=== PATIENT | male | born 1955 | race Caucasian/White ===

== ENCOUNTER 2019-04-11 23:50 | Observation (INO) ==
[~2019-04-11 23:50] MED LIST: SODIUM CHLORIDE 0.9% 1000ML 1,000 ML IV SCH; SODIUM CHLORIDE 0.9% 500 ML IV SCH
[2019-04-12 00:27] LABS: Hematocrit (blood only) 44.1 % (42-52); Hemoglobin 14.8 g/dL (14.0-18.0); Mean Corpuscular Hemoglobin 30.7 pg (25-34); Mean Corpuscular Hgb Conc 33.6 g/dL (32-36); Mean Corpuscular Volume 91.5 fL (80-100); Mean Platelet Volume 9.9 fL (7.4-10.4); Platelet Count 253 K/uL (130-400); RDW Coefficient of Variation 13.5 % (11.5-14.5); RDW Standard Deviation 44.8 fL (36.4-46.3); Red Blood Count 4.82 M/uL (4.7-6.1); White Blood Count 14.81 K/uL (4.8-10.8)
[2019-04-12 00:39] LABS: Partial Thromboplastin Time 26.6 Seconds (21.0-31.0)
[2019-04-12 00:52] LABS: Albumin Level 4.1 gm/dl (3.4-5.0); BUN Creatinine Ratio 21.1 (10-20); Creatinine Clr Calc Pharmacy 69.1 ml/min; Est GFR (African American) 71.1; Est GFR (Non-African American) 61.3; Potassium 3.7 mmol/L (3.5-5.1)
[2019-04-12 00:55] LABS: Albumin Globulin Ratio 1.3 (0.9-2); Bilirubin,Total 0.4 mg/dl (0.2-1); Globulin 3.2 gm/dl (2.5-4.0); Total Protein 7.3 gm/dl (6.4-8.2)
[2019-04-12] MEDS ORDERED: IOVERSOL 100ml IV PRN (01:11)
[2019-04-12 01:47] LABS: ALC (manual) 9.61 K/uL (1.2-3.4); ANC (manual) 4.81 K/uL (1.4-6.5); Lymphocytes # (manual) 2.78 K/uL (1.2-3.4); Lymphocytes % (manual) 18.8 %; Monocytes # (manual) 0.39 K/uL (0.11-0.59); Monocytes % (manual) 2.6 %; Neutrophils # (manual) 4.81 K/uL (1.4-6.5); Neutrophils % (manual) 32.5 %; Reactive Lymphocytes # (manual) 6.83 K/uL; Reactive Lymphocytes % (manual) 46.1 %
[2019-04-12] MEDS ORDERED: AMPICILLIN/SULBACTAM SOD 3,000 MG in 0.9 % SODIUM CHLORIDE 100 ML IV STA (02:32)
--- NOTE | 2019-04-12 03:01 | Emergency Department Note ---
Entered by America Lion acting as a scribe for Kenisha Mcgee MD History of Present Illness General Chief complaint: Rectal Bleed Stated complaint: BLEEDING FROM RECTUM Source: patient History of Present Illness Onset (ago): day(s) 2 Location: abdomen Pain Consistency: + other (persistent ) Maximum Pain Intensity: 3 Quality: + other (rectal bleeding) Associated symptoms: + other (positive lower abdominal cramping) The patient is a 63 year old male who presents to the Emergency Room with complaints of persistent rectal bleeding that began 2 days prior to arrival. The patient states that this began after having to push harder than normal for a bowel movement at this time. He states that this bowel movement was dark black and had a large amount of dark red blood in it. The patient states that since that time he has had softer stools with dark red blood in them, but denies black stools. The patient denies any history of this. The patient reports some lower abdominal cramping during this time. He states that he takes an aspirin everyday but denies being on blood thinners. The patient states that he began smoking again 3 months ago after quitting for 7 years. The patient states that he has never had a colonoscopy. Home Medications Home Medications Medication Instructions Recorded Confirmed Type Invokana 300 mg PO DAILY 04/12/19 04/12/19 History ascorbic acid (vitamin C) 500 mg PO DAILY 04/12/19 04/12/19 History atorvastatin 40 mg PO HS 04/12/19 04/12/19 History carvedilol 12.5 mg PO BIDM 04/12/19 04/12/19 History cholecalciferol (vitamin D3) 1,000 unit PO DAILY 04/12/19 04/12/19 History [Vitamin D3] citalopram 40 mg PO HS 04/12/19 04/12/19 History fenofibrate micronized 200 mg PO DAILY 04/12/19 04/12/19 History glimepiride 4 mg PO QAM 04/12/19 04/12/19 History lisinopril 5 mg PO DAILY 04/12/19 04/12/19 History lorazepam 0.5 mg PO BID PRN 04/12/19 04/12/19 History metformin 1,000 mg PO BIDM 04/12/19 04/12/19 History mirtazapine 30 mg PO QPM 04/12/19 04/12/19 History omega 4-yjk-ldp-fish oil [Fish Oil] 1 cap PO DAILY 04/12/19 04/12/19 History ranitidine HCl 150 mg PO BID 04/12/19 04/12/19 History acetaminophen [Mapap 650 mg PO Q4H PRN 30 Days #30 tab 04/13/19 Rx (acetaminophen)] docusate sodium [Colace] 100 mg PO DAILY 30 Days #30 cap 04/13/19 Rx Allergies Allergy/AdvReac Type Severity Reaction Status Date / Time No Known Allergies Allergy Unverified 04/12/19 01:50 Past Med/Surg History Family History Other No pertinent family history in first degree relatives Social History Preferred Language: [place] Communication Ability: 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 and A total of 10 systems reviewed and were otherwise negative Physical Exam Vital Signs Vital Signs - 24 hr 04/11/19 23:50 04/12/19 00:13 04/12/19 00:38 Temperature 36.7 C Temperature Source Oral Sepsis Recent Fever Within 48 Hours No Sepsis Action Taken by Nursing No Action Required Pulse Rate 73 73 67 Pulse Rate from SpO2 Sensor 66 Pulse Rhythm Regular Respiratory Rate 16 16 15 Respiratory Effort / Characteristics Non-Labored Spontaneous Respiratory Depth Normal Blood Pressure 152/83 H 120/72 Blood Pressure Mean 106 88 Blood Pressure Position Sitting Pulse Oximetry 98 98 94 Oxygen Delivery Method Room Air Room Air Room Air 04/12/19 01:00 04/12/19 01:30 04/12/19 02:00 Temperature Temperature Source Sepsis Recent Fever Within 48 Hours Sepsis Action Taken by Nursing Pulse Rate 68 73 67 Pulse Rate from SpO2 Sensor 68 72 65 Pulse Rhythm Respiratory Rate 21 13 7 L Respiratory Effort / Characteristics Respiratory Depth Blood Pressure 121/72 134/77 134/69 Blood Pressure Mean 88 96 90 Blood Pressure Position Pulse Oximetry 95 98 96 Oxygen Delivery Method Room Air Room Air Room Air Vital signs reviewed. General: Well-appearing 63 year old male, in no significant distress. HEENT: No scleral icterus, PERRLA, neck supple. Atraumatic. Cardiovascular: Regular rate and rhythm, no extra sounds. Pulmonary: Clear to auscultation bilaterally, normal work of breathing. Abdomen: Positive left lower quadrant tenderness. No rebound, no guarding. Soft, nondistended, positive bowel sounds. Rectal: Grossly bloody with dark red blood. Normal external mucosa. Musculoskeletal: Atraumatic, no peripheral edema. Neurologic: Patient awake alert and oriented x 3 Skin: Warm, dry, no rash Course 2359: Past medical records reviewed. The patient was evaluated in room B2. A complete history and physical exam was performed. 0232: [facility] the [facility] patient for further evaluation. 0249: I checked on and updated the patient on the treatment plan. Administered Medications Discontinued Medications Atorvastatin Calcium (Lipitor) 40 mg PO HS DAVID Stop: 05/12/19 20:59 Last Admin: 04/12/19 21:35 Dose: 40 mg Documented by: [id number] Carvedilol (Coreg) 12.5 mg PO BIDM DAVID Stop: 05/12/19 07:59 Last Admin: 04/13/19 08:53 Dose: 12.5 mg Documented by: [id number] Admin: 04/12/19 17:43 Dose: 12.5 mg Documented by: [id number] Admin: 04/12/19 08:55 Dose: 12.5 mg Documented by: [id number] Citalopram Hydrobromide (Celexa) 40 mg PO HS DAVID Stop: 05/12/19 20:59 Last Admin: 04/12/19 21:35 Dose: 40 mg Documented by: [id number] Docusate Sodium (Colace) 100 mg PO NOW ONE Stop: 04/13/19 09:21 Last Admin: 04/13/19 09:39 Dose: 100 mg Documented by: [id number] Fenofibrate (Tricor) 145 mg PO DAILY DAVID Stop: 05/12/19 08:59 Last Admin: 04/13/19 08:54 Dose: 145 mg Documented by: [id number] Admin: 04/12/19 08:55 Dose: 145 mg Documented by: [id number] Sodium Chloride (Nss) 500 mls @ 999 mls/hr IV .Q31M DAVID Stop: 04/12/19 00:15 Last Infusion: 04/12/19 01:22 Dose: 0 mls/hr Documented by: [id number] Admin: 04/12/19 00:40 Dose: 999 mls/hr Documented by: [id number] Sodium Chloride (Nss 1000ml) 1,000 mls @ 125 mls/hr IV .Q8H DAVID Stop: 05/11/19 23:44 Last Infusion: 04/12/19 04:20 Dose: 0 mls/hr Documented by: [id number] Admin: 04/12/19 01:22 Dose: 125 mls/hr Documented by: [id number] Ampicillin Sodium/Sulbactam Sodium 3,000 mg/ Sodium Chloride 108 mls @ 200 mls/hr IV NOW STA; Protocol Stop: 04/12/19 03:04 Last Infusion: 04/12/19 04:11 Dose: 0 mls/hr Documented by: [id number] Admin: 04/12/19 03:18 Dose: 200 mls/hr Documented by: [id number] Lactated Ringer's (Lr) 1,000 mls @ 50 mls/hr IV .Q20H ONE Stop: 04/13/19 00:09 Last Infusion: 04/13/19 00:25 Dose: 0 mls/hr Documented by: [id number] Infusion: 04/12/19 22:06 Dose: 50 mls/hr Documented by: [id number] Admin: 04/12/19 04:55 Dose: 50 mls/hr Documented by: [id number] Insulin Aspart (Novolog Flexpen) 0 units SC ACHS DAVID Stop: 05/12/19 04:09 Last Admin: 04/13/19 08:52 Dose: 4 units Documented by: [id number] Cosigned by: [id number] Admin: 04/12/19 21:46 Dose: Not Given Documented by: [id number] Cosigned by: [id number] Admin: 04/12/19 17:42 Dose: 4 units Documented by: [id number] Cosigned by: [id number] Admin: 04/12/19 13:40 Dose: 3 units Documented by: [id number] Cosigned by: [id number] Admin: 04/12/19 04:57 Dose: Not Given Documented by: [id number] Cosigned by: [id number] Ioversol (Optiray 320 100ml) 94 ml IV ONCE PRN PRN Reason: Interaction Checking Stop: 04/16/19 01:10 Last Admin: 04/12/19 01:12 Dose: 94 ml Documented by: [id number] Lisinopril (Zestril) 5 mg PO DAILY DAVID Stop: 05/12/19 08:59 Last Admin: 04/13/19 08:54 Dose: 5 mg Documented by: [id number] Admin: 04/12/19 08:56 Dose: 5 mg Documented by: [id number] Mirtazapine (Remeron) 30 mg PO QPM DAVID Stop: 05/12/19 20:59 Last Admin: 04/12/19 21:35 Dose: 30 mg Documented by: [id number] Ranitidine HCl (Zantac) 150 mg PO BID DAVID Stop: 05/12/19 08:59 Last Admin: 04/13/19 08:54 Dose: 150 mg Documented by: [id number] Admin: 04/12/19 21:35 Dose: 150 mg Documented by: [id number] Admin: 04/12/19 08:55 Dose: 150 mg Documented by: [id number] Medical Decision Making Differential Diagnosis Differential diagnosis includes etiologies such as diverticulosis, AVM, coagulopathy, colitis, inflammatory bowel disease, malignancy, Mehnaz-Haney tear, esophagitis, peptic ulcer disease, variceal bleed, gastritis, epistaxis, fissure, hemorrhoids, as well as others were entertained. Medical Records Attestation: I reviewed the patient's medical records. Home Medications Current Medication List: was personally reviewed by me Laboratory Data Attestation: I reviewed the patient's lab results. Result diagrams: 04/13/19 05:12 04/13/19 05:12 Lab Results 04/12/19 04/12/19 04/12/19 Range/Units 00:10 00:10 00:10 WBC 14.81 H (4.8-10.8) K/uL RBC 4.82 (4.7-6.1) M/uL Hgb 14.8 (14.0-18.0) g/dL Hct 44.1 (42-52) % MCV 91.5 (80-100) fL MCH 30.7 (25-34) pg MCHC 33.6 (32-36) g/dL RDW Std Deviation 44.8 (36.4-46.3) fL RDW Coeff of Alejandrina 13.5 (11.5-14.5) % Plt Count 253 (130-400) K/uL MPV 9.9 (7.4-10.4) fL Neutrophils % (Manual) 32.5 % Lymphocytes % (Manual) 18.8 % Reactive Lymphs % (Man) 46.1 % Monocytes % (Manual) 2.6 % Neutrophils # (Manual) 4.81 (1.4-6.5) K/uL Total Absolute Neuts 4.81 (1.4-6.5) K/uL Lymphocytes # (Manual) 2.78 (1.2-3.4) K/uL Reactive Lymphs # 6.83 K/uL Total Abs Lymphocytes 9.61 H (1.2-3.4) K/uL Monocytes # (Manual) 0.39 (0.11-0.59) K/uL Blood Smear Review PT 10.0 (9.0-12.0) Seconds INR 1.0 (0.9-1.1) APTT 26.6 (21.0-31.0) Seconds PTT Ratio 1.0 Sodium 141 (136-145) mmol/L Potassium 3.7 (3.5-5.1) mmol/L Chloride 110 H (98-107) mmol/L Carbon Dioxide 22 (21-32) mmol/L Anion Gap 9.0 (3-11) BUN 26 H (7-18) mg/dl Creatinine 1.25 (0.6-1.4) mg/dl Est Cr Clr Drug Dosing 69.1 ml/min Est GFR ( Amer) 71.1 Est GFR (Non-Af Amer) 61.3 BUN/Creatinine Ratio 21.1 H (10-20) Glucose 154 H (70-99) mg/dl Estimat Average Glucose mg/dl Hemoglobin A1c (4.5-5.6) % Calcium 9.0 (8.5-10.1) mg/dl Magnesium 2.0 (1.8-2.4) mg/dl Total Bilirubin 0.4 (0.2-1) mg/dl AST 13 L (15-37) U/L ALT 29 (12-78) U/L Alkaline Phosphatase 65 (45-117) U/L Total Protein 7.3 (6.4-8.2) gm/dl Albumin 4.1 (3.4-5.0) gm/dl Globulin 3.2 (2.5-4.0) gm/dl Albumin/Globulin Ratio 1.3 (0.9-2) Blood Type Antibody Screen 04/12/19 04/12/19 Range/Units 00:10 00:10 WBC (4.8-10.8) K/uL RBC (4.7-6.1) M/uL Hgb (14.0-18.0) g/dL Hct (42-52) % MCV (80-100) fL MCH (25-34) pg MCHC (32-36) g/dL RDW Std Deviation (36.4-46.3) fL RDW Coeff of Alejandrina (11.5-14.5) % Plt Count (130-400) K/uL MPV (7.4-10.4) fL Neutrophils % (Manual) % Lymphocytes % (Manual) % Reactive Lymphs % (Man) % Monocytes % (Manual) % Neutrophils # (Manual) (1.4-6.5) K/uL Total Absolute Neuts (1.4-6.5) K/uL Lymphocytes # (Manual) (1.2-3.4) K/uL Reactive Lymphs # K/uL Total Abs Lymphocytes (1.2-3.4) K/uL Monocytes # (Manual) (0.11-0.59) K/uL Blood Smear Review PT (9.0-12.0) Seconds INR (0.9-1.1) APTT (21.0-31.0) Seconds PTT Ratio Sodium (136-145) mmol/L Potassium (3.5-5.1) mmol/L Chloride (98-107) mmol/L Carbon Dioxide (21-32) mmol/L Anion Gap (3-11) BUN (7-18) mg/dl Creatinine (0.6-1.4) mg/dl Est Cr Clr Drug Dosing ml/min Est GFR ( Amer) Est GFR (Non-Af Amer) BUN/Creatinine Ratio (10-20) Glucose (70-99) mg/dl Estimat Average Glucose 229 mg/dl Hemoglobin A1c 9.6 H (4.5-5.6) % Calcium (8.5-10.1) mg/dl Magnesium (1.8-2.4) mg/dl Total Bilirubin (0.2-1) mg/dl AST (15-37) U/L ALT (12-78) U/L Alkaline Phosphatase (45-117) U/L Total Protein (6.4-8.2) gm/dl Albumin (3.4-5.0) gm/dl Globulin (2.5-4.0) gm/dl Albumin/Globulin Ratio (0.9-2) Blood Type O Positive Antibody Screen NEGATIVE Imaging Data Radiologist's Impression: Radiology results as stated below per my review and the radiologist's interpretation: CT ABDOMEN & PELVIS With Contrast: Comparison:CT abdomen and pelvis 01/09/13. Intraluminal hyperdensity noted in the distal sigmoid colon (series 2, image 61), concerning for gastrointestinal bleeding, possibly diverticular in origin. Normal appendix. No bowel obstruction. Colonic diverticulosis without acute diverticulitis. Hepatic steatosis. Gallbladder, spleen, pancreas, and adrenal glands are unremarkable. Symmetric renal enhancement. No hydronephrosis. Urinary bladder is normal. Prostate is mildly enlarged. Fat-containing inguinal hernias. No acute osseous findings. Radiologist: Angelica Schmitz M.D. Study ready at 01:30 and initial results transmitted at 02:09 ECG Data Attestation: I personally reviewed and interpreted this ECG as follows: Indication: + abdominal pain Rate (beats per minute): 67 Rhythm: + normal sinus ECG Intervals/blocks: + Normal QRS ECG Findings: + Other (nonspecific ST change in the anteriolateral leads ); no PACs and no PVCs Blood Pressure Blood Pressure Findings: Elevated blood pressure Blood Pressure Disposition: further management by hospitalist KYM Narrative This patient was evaluated and appeared to be in no significant distress. IV access was obtained and laboratory work was drawn. Patient was placed on awake overnight monitor. CT imaging was performed and is significant for diverticulitis. Patient did receive IV hydration, IV Dilaudid and Zofran for his discomfort. Physical examination is significant for gross blood per rectum. Patient has mild lower abdominal tenderness. CT imaging is significant for diverticulitis and likely secondary to diverticular bleed. IV Unasyn was admini stered. Patient has been typed and screened. Hemoglobin at this time is 14.8. Patient was informed of the findings and agrees with the plan for consultation with the hospitalist service. Dr. Isabel was consulted and will evaluate the patient for further management. Impression & Plan Diverticulitis, GI bleed Discharge Plan Visit Data *Final* Discharge Date/Time: 04/12/19 03:44 Chief Complaint: Rectal Bleed Stated Complaint: BLEEDING FROM RECTUM ED Provider: Kenisha Mcgee Discharge Problem: Diverticulitis, GI bleed Patient Disposition: Admitted As Inpatient Discharge Instructions Interventions: ED Discharge Assessment Last Done: 04/12/19 03:44 Discharge Problem: GI bleed Qualifiers: GI bleed type/associated pathology: unspecified gastrointestinal hemorrhage type Qualified Code(s): K92.2 - Gastrointestinal hemorrhage, unspecified The scribe's documentation has been prepared under my direction and personally reviewed by me in its entirety. I confirm that the note above accurately reflects all work, treatment, procedures, and medical decision making performed by me.
--- NOTE | 2019-04-12 03:05 | History & Physical Report ---
Date of Service April 12, 2019 Assessment & Plan (1) LGI bleed: Diverticular bleed on CT Rule out C. difficile given diarrhea complaints Patient currently hemodynamically stable. hypertension, slightly elevated hyperlipidemia, on statin Rx anxiety/mood disorder, at baseline DM 2 on oral meds, reasonable control as of recent outpatient hemoglobin A1c of 7.06 Oct 2018 ongoing tobacco abuse OBS GMF Stool C. difficile Clear liquids for now Trend H&H, transfuse PRBC if hemoglobin less than 7 and/or for symptomatic anemia May need GI consult if with persistent L GIB if stool C. difficile negative DC home aspirin given LGIB and lack of indication for home use. ISS BG goal 140-180, update hemoglobin A1c Nicotine patch PRN DVT prophylaxis. SCDs RE L GIB Full code History of Present Illness Chief Complaint: Rectal bleed, abdominal cramping Primary Care Provider: Jerry Rushing MD History obtained from patient and records. Medical history significant for hypertension, hyperlipidemia, anxiety/mood disorder, DM 2 on oral meds, ongoing tobacco abuse. 3 days history of rectal bleeding associated with achy lower abdominal cramping, initially with constipation followed by diarrhea. Some nausea, no emesis. No recent antibiotic Rx except for postop cataract eyedrops, no known sick contacts, no recent travel. No unusual weight loss the last few weeks months. No chest pain, no S OB, no dizziness. At the ER, patient received IV Zosyn for diverticular bleed. Medical History as above No prior endoscopies. Surgical History : Cystoureteroscopy, cataract surgery, tonsillectomy Family History : Half pack daily, no EtOH intake, brain cancer, heart disease, dementia; no colon cancer Personal/Social history : Allergies Allergy/AdvReac Type Severity Reaction Status Date / Time No Known Allergies Allergy Unverified 04/12/19 01:50 Home Medications Home Medications Medication Instructions Recorded Confirmed Type Probiotic 1 dose PO DAILY 04/12/19 04/12/19 History ascorbic acid (vitamin C) 500 mg PO DAILY 04/12/19 04/12/19 History aspirin 81 mg PO DAILY 04/12/19 04/12/19 History atorvastatin 40 mg PO HS 04/12/19 04/12/19 History canagliflozin [Invokana] 300 mg PO DAILY 04/12/19 04/12/19 History carvedilol 12.5 mg PO BIDM 04/12/19 04/12/19 History cholecalciferol (vitamin D3) 1,000 unit PO DAILY 04/12/19 04/12/19 History [Vitamin D3] citalopram 40 mg PO HS 04/12/19 04/12/19 History fenofibrate micronized 200 mg PO DAILY 04/12/19 04/12/19 History glimepiride 4 mg PO QAM 04/12/19 04/12/19 History lisinopril 5 mg PO DAILY 04/12/19 04/12/19 History lorazepam 0.5 mg PO BID PRN 04/12/19 04/12/19 History metformin 1,000 mg PO BIDM 04/12/19 04/12/19 History mirtazapine 30 mg PO QPM 04/12/19 04/12/19 History omega 9-fsd-mvx-fish oil [Fish Oil] 1 cap PO DAILY 04/12/19 04/12/19 History ranitidine HCl 150 mg PO BID 04/12/19 04/12/19 History Past Med/Surg History Family History Other No pertinent family history in first degree relatives Social History Preferred Language: Danish Communication Ability: Effective Cloak Room Attendant Required: No Beliefs That Will Affect Care: Zoroastrian Zoroastrian Beliefs: hinduism Current Living Situation: Alone Other Information That Helps Us Care for You: No Feels Safe at Home: Yes Safety Concerns: Feels Safe At This Time Smoking Status: Current every day smoker Tobacco Type: cigarettes ; Cigarettes Per Day: 15 ; Do You Dip or Chew Tobacco: No ; Tobacco Cessation Education Requested by Patient: No Hx Alcohol Use: Yes Alcohol type: hard liquor Hx Substance Use: No Review of Systems Review of Systems: As per HPI, all 10 systems reviewed, all other ROS negative Physical Exam Physical Exam: GENERAL: Comfortable, pleasant, no respiratory distress SKIN: Normal color, warm HEENT: Partial alopecia, bespectacled, pink palpebral conjunctivae, no ptosis, dry buccal mucosa NECK : Supple, no tenderness CHEST : CTA, no tenderness HEART : RRR, no obvious murmurs ABDOMEN: Some distention, hypogastric tenderness EXTREMITIES : No LE swelling/tenderness, no other conspicuous deformities noted NEUROLOGIC : Coherent, no facial asymmetry, no other gross focality Results & Data Vital Signs (Past 12 Hours) Vital Signs Temp Pulse Resp BP Pulse Ox 04/12/19 02:00 67 7 L 134/69 96 04/12/19 01:30 73 13 134/77 98 04/12/19 01:00 68 21 121/72 95 04/12/19 00:38 67 15 120/72 94 04/12/19 00:13 73 16 98 04/11/19 23:50 36.7 C 73 16 152/83 H 98 Laboratory Results Laboratory Results WBC 14.81 K/uL (4.8-10.8) H 04/12/19 00:10 RBC 4.82 M/uL (4.7-6.1) 04/12/19 00:10 Hgb 14.8 g/dL (14.0-18.0) 04/12/19 00:10 Hct 44.1 % (42-52) 04/12/19 00:10 MCV 91.5 fL (80-100) 04/12/19 00:10 MCH 30.7 pg (25-34) 04/12/19 00:10 MCHC 33.6 g/dL (32-36) 04/12/19 00:10 RDW Std Deviation 44.8 fL (36.4-46.3) 04/12/19 00:10 RDW Coeff of Alejandrina 13.5 % (11.5-14.5) 04/12/19 00:10 Plt Count 253 K/uL (130-400) 04/12/19 00:10 MPV 9.9 fL (7.4-10.4) 04/12/19 00:10 Neutrophils % (Manual) 32.5 % 04/12/19 00:10 Lymphocytes % (Manual) 18.8 % 04/12/19 00:10 Reactive Lymphs % (Man) 46.1 % 04/12/19 00:10 Monocytes % (Manual) 2.6 % 04/12/19 00:10 Neutrophils # (Manual) 4.81 K/uL (1.4-6.5) 04/12/19 00:10 Total Absolute Neuts 4.81 K/uL (1.4-6.5) 04/12/19 00:10 Lymphocytes # (Manual) 2.78 K/uL (1.2-3.4) 04/12/19 00:10 Reactive Lymphs # 6.83 K/uL 04/12/19 00:10 Total Abs Lymphocytes 9.61 K/uL (1.2-3.4) H 04/12/19 00:10 Monocytes # (Manual) 0.39 K/uL (0.11-0.59) 04/12/19 00:10 PT 10.0 Seconds (9.0-12.0) 04/12/19 00:10 INR 1.0 (0.9-1.1) 04/12/19 00:10 APTT 26.6 Seconds (21.0-31.0) 04/12/19 00:10 PTT Ratio 1.0 04/12/19 00:10 Sodium 141 mmol/L (136-145) 04/12/19 00:10 Potassium 3.7 mmol/L (3.5-5.1) 04/12/19 00:10 Chloride 110 mmol/L (98-107) H 04/12/19 00:10 Carbon Dioxide 22 mmol/L (21-32) 04/12/19 00:10 Anion Gap 9.0 (3-11) 04/12/19 00:10 BUN 26 mg/dl (7-18) H 04/12/19 00:10 Creatinine 1.25 mg/dl (0.6-1.4) 04/12/19 00:10 Est Cr Clr Drug Dosing 69.1 ml/min 04/12/19 00:10 Est GFR ( Amer) 71.1 04/12/19 00:10 Est GFR (Non-Af Amer) 61.3 04/12/19 00:10 BUN/Creatinine Ratio 21.1 (10-20) H 04/12/19 00:10 Glucose 154 mg/dl (70-99) H 04/12/19 00:10 Calcium 9.0 mg/dl (8.5-10.1) 04/12/19 00:10 Magnesium 2.0 mg/dl (1.8-2.4) 04/12/19 00:10 Total Bilirubin 0.4 mg/dl (0.2-1) 04/12/19 00:10 AST 13 U/L (15-37) L 04/12/19 00:10 ALT 29 U/L (12-78) 04/12/19 00:10 Alkaline Phosphatase 65 U/L (45-117) 04/12/19 00:10 Total Protein 7.3 gm/dl (6.4-8.2) 04/12/19 00:10 Albumin 4.1 gm/dl (3.4-5.0) 04/12/19 00:10 Globulin 3.2 gm/dl (2.5-4.0) 04/12/19 00:10 Albumin/Globulin Ratio 1.3 (0.9-2) 04/12/19 00:10 Blood Type O Positive 04/12/19 00:10 Antibody Screen NEGATIVE 04/12/19 00:[address] abdomen pelvis initial read: Intraluminal hyperdensity distal sigmoid colon concerning for GI bleed possibly diverticular in origin. Normal appendix. No bowel obstruction. Colonic diverticulosis without diverticulitis. No hydronephrosis. BPH. EKG as per my interpretation rate 65, NSR, normal axis, T wave flattening inferior leads
[2019-04-12] MEDS ORDERED: DEXTROSE 50% 50 ML SYRINGE IV PRN (04:10)
[2019-04-12] MEDS ORDERED: CARBOHYDRATES FOR HYPOGLYCEMIA PO PRN (04:10)
[2019-04-12] MEDS ORDERED: GLUCOSE 40% GEL 15 GM TUBE PO PRN (04:10)
[2019-04-12] MEDS ORDERED: TRAMADOL HCL 50 MG TABLET PO PRN (04:10)
[2019-04-12] MEDS ORDERED: GLUCAGON FOR INJ 1 MG VIAL SQ PRN (04:10)
[2019-04-12] MEDS ORDERED: GLUCOSE 10 TABS/TUBE PO PRN (04:10)
[2019-04-12] MEDS ORDERED: LACTATED RINGER'S 1,000 ML IV ONE (04:10)
[2019-04-12] MEDS ORDERED: PROMETHAZINE HCL 12.5 MG in SODIUM CHLORIDE 0.9% 50 ML IV PRN (04:10)
[2019-04-12] MEDS ORDERED: ACETAMINOPHEN 325 MG TAB PO PRN (04:10)
[2019-04-12] MEDS ORDERED: LORazepam 0.5 MG TAB PO PRN (04:10)
[2019-04-12] MEDS ORDERED: MoRPHine SULFATE 4 MG/ML 1 ML CARP\\VIAL IV PRN (04:10)
[2019-04-12] MEDS: INSULIN ASPART 100 UNITS/ML 3 ML PEN SC SCH ×4 (04:57→21:46)
[2019-04-12 05:51] LABS: Hematocrit (blood only) 41.3 % (42-52)
[2019-04-12 06:17] LABS: Estimated Average Glucose 229 mg/dl; Hemoglobin A1C 9.6 % (4.5-5.6)
[2019-04-12] MEDS ORDERED: Nursing to Pharmacy Communication ONE (07:26)
--- NOTE | 2019-04-12 07:38 | CT Scan Report ---
CT SCAN OF THE ABDOMEN AND PELVIS WITH IV CONTRAST CLINICAL HISTORY: Lower abdominal pain. GI bleeding. COMPARISON STUDY: Abdominal CT dated 01/09/2013. TECHNIQUE: Following the IV administration of 94 cc of Optiray 320, CT scan of the abdomen and pelvi s is performed from the lung bases to the proximal femora. Images are reviewed in the axial, sagittal , and coronal planes. IV contrast was administered without complication. A dose lowering technique wa s utilized adhering to the principles of ALARA. CT DOSE: 1146.28 mGy.cm FINDINGS: Lung bases: The heart is normal in size and without pericardial effusion. There are coronary artery c alcifications. A small hiatal hernia is identified. The lung bases are clear. Liver: The contrast-enhanced liver is enlarged, measuring 20 cm in length. The liver demonstrates dif fusely diminished attenuation consistent with hepatic steatosis. There is no intrahepatic biliary cici maryam dilatation. The hepatic veins and portal veins are patent. Gallbladder: Unremarkable. Spleen: Normal in size and attenuation. Pancreas: Unremarkable. Adrenal glands: Unremarkable. Kidneys: The contrast enhanced kidneys are normal in size and without hydronephrosis. The kidneys enh ance symmetrically. Scattered subcentimeter cortical hypodensities likely represent cysts but are too small for definitive characterization. There is a 7 mm partially exophytic hyperdense lesion arising from the interpolar left kidney seen on image #137. Abdominal vasculature: The abdominal aorta is normal in course and caliber noting moderate atheroscle rotic calcification. Bowel: There is moderate sigmoid diverticulosis without CT evidence of acute diverticulitis. No bowel obstruction is seen. There is hyperdense material identified within the lumen of the sigmoid colon a nd this is axial image #312). This likely represents extravasated intraluminal contrast. The appendix is well-visualized and normal. Peritoneum: There is no intraperitoneal free air or abdominal ascites. Lymphadenopathy: None. Pelvic viscera: The bladder, prostate, and seminal vesicles are normal as visualized. There are small bilateral fat-containing inguinal hernias. Skeletal structures: There is mild lumbosacral spondylosis. No lytic or blastic lesions are seen. IMPRESSION: 1. There is intraluminal hyperdense material present within the sigmoid colon. This is contrast densi ty, and given the history of GI bleeding likely represents active extravasation. 2. Moderate sigmoid diverticulosis without CT evidence of acute diverticulitis. 3. Hepatomegaly and hepatic steatosis. 4. There is a 7 mm hyperdense and possibly enhancing lesion arising from the interpolar left kidney. Although this could represent 5. Additional findings as above. A small complex cyst, correlation with a nonemergent MRI of the kidneys is recommended for further assessment. Electronically signed by: Sean Whitaker M.D. 04/12/2019 7:36 AM
[2019-04-12] MEDS: CARVEDILOL 12.5 MG TAB PO SCH ×2 (08:55→17:43)
[2019-04-12] MEDS: FENOFIBRATE NANOCRYSTALLIZED 145 MG TABLET PO SCH (08:55)
[2019-04-12] MEDS: LISINOPRIL 5 MG TAB PO SCH (08:56)
[2019-04-12 12:12] LABS: Hematocrit (blood only) 40.5 % (42-52); Hemoglobin 13.6 g/dL (14.0-18.0)
--- NOTE | 2019-04-12 14:03 | Hospitalist Progress Note ---
Date of Service April 12, 2019 Assessment & Plan (1) LGI bleed: Diverticular bleed on CT C. difficile negative Patient currently hemodynamically stable Hemoglobin stable as well Bowel movements decreased in amount, however still has had multiple today We will hold aspirin, or any NSAIDs given LGIB and lack of indication for home use Antibiotics stopped, received Zosyn in the ED Patient did not have colonoscopy yet, discussed in detail that this is something to be done in the future, patient agreed Clear liquids for now, then low fiber diet Trend H&H, transfuse PRBC if hemoglobin less than 7 and/or for symptomatic anemia May need GI consult if with persistent L GIB if stool C. difficile negative hypertension, slightly elevated hyperlipidemia, on statin Rx anxiety/mood disorder, at baseline DM 2 on oral meds, reasonable control as of recent outpatient hemoglobin A1c of 7.06 Oct 2018 ISS BG goal 140-180, update hemoglobin A1c ongoing tobacco abuse Nicotine patch PRN DVT prophylaxis. SCDs RE L GIB Full code Subjective Patient is lying in bed, comfortable, denies any fevers, chills, chest pain or shortness of breath, dizziness/lightheadedness. He has some abdominal tenderness in the lower abdominal quadrants. Says that he had several bowel movements, they are now smaller in quantity and contain dark red blood. Overall feels well. Hemoglobin remains stable and patient is also hemodynamically stable. Review of Systems Review of Systems: All systems reviewed & are unremarkable except as noted in HPI & below Constitutional: no fever, no chills and no fatigue Respiratory: no cough, no dyspnea and no pain on inspiration Cardiovascular: no chest pain, no dyspnea on exertion, no palpitations and no edema Gastrointestinal: + abdominal pain and + blood in stools; no nausea and no vomiting Physical Exam Physical Exam: GENERAL: Comfortable, pleasant, no respiratory distress SKIN: Normal color, warm HEENT: Normocephalic, atraumatic, EOMI, PERRL, anicteric sclera NECK : Supple, no tenderness CHEST : Normal to inspection HEART : RRR, no obvious murmurs ABDOMEN: Some distention, hypogastric tenderness EXTREMITIES : No LE swelling/tenderness, no other conspicuous deformities noted NEUROLOGIC : Coherent, no facial asymmetry, no other gross focality Results & Data Vital Signs (Past 12 Hours) Vital Signs Temp Pulse Pulse Pulse Resp BP BP 04/12/19 08:11 63 120/73 04/12/19 07:34 36.4 C L 71 16 95/58 L 04/12/19 04:00 36.5 C 68 18 143/82 H 04/12/19 03:21 65 18 142/91 H 04/12/19 03:01 67 16 142/91 H 04/12/19 02:30 65 5 L 130/79 Pulse Ox 04/12/19 08:11 95 04/12/19 07:34 96 04/12/19 04:00 96 04/12/19 03:21 95 04/12/19 03:01 96 04/12/19 02:30 95 Laboratory Results 04/12/19 04/12/19 04/12/19 Range/Units 12:21 11:51 09:25 WBC (4.8-10.8) K/uL RBC (4.7-6.1) M/uL Hgb 13.6 L (14.0-18.0) g/dL Hct 40.5 L (42-52) % MCV (80-100) fL MCH (25-34) pg MCHC (32-36) g/dL RDW Std Deviation (36.4-46.3) fL RDW Coeff of Alejandrina (11.5-14.5) % Plt Count (130-400) K/uL MPV (7.4-10.4) fL Neutrophils % (Manual) % Lymphocytes % (Manual) % Reactive Lymphs % (Man) % Monocytes % (Manual) % Neutrophils # (Manual) (1.4-6.5) K/uL Total Absolute Neuts (1.4-6.5) K/uL Lymphocytes # (Manual) (1.2-3.4) K/uL Reactive Lymphs # K/uL Total Abs Lymphocytes (1.2-3.4) K/uL Monocytes # (Manual) (0.11-0.59) K/uL Blood Smear Review PT (9.0-12.0) Seconds INR (0.9-1.1) APTT (21.0-31.0) Seconds PTT Ratio Sodium (136-145) mmol/L Potassium (3.5-5.1) mmol/L Chloride (98-107) mmol/L Carbon Dioxide (21-32) mmol/L Anion Gap (3-11) BUN (7-18) mg/dl Creatinine (0.6-1.4) mg/dl Est Cr Clr Drug Dosing ml/min Est GFR ( Amer) Est GFR (Non-Af Amer) BUN/Creatinine Ratio (10-20) Glucose (70-99) mg/dl POC Glucose 137 H (70-99) Estimat Average Glucose mg/dl Hemoglobin A1c (4.5-5.6) % Calcium (8.5-10.1) mg/dl Magnesium (1.8-2.4) mg/dl Total Bilirubin (0.2-1) mg/dl AST (15-37) U/L ALT (12-78) U/L Alkaline Phosphatase (45-117) U/L Total Protein (6.4-8.2) gm/dl Albumin (3.4-5.0) gm/dl Globulin (2.5-4.0) gm/dl Albumin/Globulin Ratio (0.9-2) Stl C. diff Tox B Gene Negative Cdiff Gene (Neg) Flow Cytometry Comment Blood Type Antibody Screen 04/12/19 04/12/19 04/12/19 Range/Units 05:31 04:55 00:10 WBC (4.8-10.8) K/uL RBC (4.7-6.1) M/uL Hgb 14.0 (14.0-18.0) g/dL Hct 41.3 L (42-52) % MCV (80-100) fL MCH (25-34) pg MCHC (32-36) g/dL RDW Std Deviation (36.4-46.3) fL RDW Coeff of Alejandrina (11.5-14.5) % Plt Count (130-400) K/uL MPV (7.4-10.4) fL Neutrophils % (Manual) % Lymphocytes % (Manual) % Reactive Lymphs % (Man) % Monocytes % (Manual) % Neutrophils # (Manual) (1.4-6.5) K/uL Total Absolute Neuts (1.4-6.5) K/uL Lymphocytes # (Manual) (1.2-3.4) K/uL Reactive Lymphs # K/uL Total Abs Lymphocytes (1.2-3.4) K/uL Monocytes # (Manual) (0.11-0.59) K/uL Blood Smear Review PT (9.0-12.0) Seconds INR (0.9-1.1) APTT (21.0-31.0) Seconds PTT Ratio Sodium (136-145) mmol/L Potassium (3.5-5.1) mmol/L Chloride (98-107) mmol/L Carbon Dioxide (21-32) mmol/L Anion Gap (3-11) BUN (7-18) mg/dl Creatinine (0.6-1.4) mg/dl Est Cr Clr Drug Dosing ml/min Est GFR ( Amer) Est GFR (Non-Af Amer) BUN/Creatinine Ratio (10-20) Glucose (70-99) mg/dl POC Glucose 101 H (70-99) Estimat Average Glucose mg/dl Hemoglobin A1c (4.5-5.6) % Calcium (8.5-10.1) mg/dl Magnesium (1.8-2.4) mg/dl Total Bilirubin (0.2-1) mg/dl AST (15-37) U/L ALT (12-78) U/L Alkaline Phosphatase (45-117) U/L Total Protein (6.4-8.2) gm/dl Albumin (3.4-5.0) gm/dl Globulin (2.5-4.0) gm/dl Albumin/Globulin Ratio (0.9-2) Stl C. diff Tox B Gene (Neg) Flow Cytometry Comment Pending Blood Type Antibody Screen 04/12/19 04/12/19 04/12/19 Range/Units 00:10 00:10 00:10 WBC (4.8-10.8) K/uL RBC (4.7-6.1) M/uL Hgb (14.0-18.0) g/dL Hct (42-52) % MCV (80-100) fL MCH (25-34) pg MCHC (32-36) g/dL RDW Std Deviation (36.4-46.3) fL RDW Coeff of Alejandrina (11.5-14.5) % Plt Count (130-400) K/uL MPV (7.4-10.4) fL Neutrophils % (Manual) % Lymphocytes % (Manual) % Reactive Lymphs % (Man) % Monocytes % (Manual) % Neutrophils # (Manual) (1.4-6.5) K/uL Total Absolute Neuts (1.4-6.5) K/uL Lymphocytes # (Manual) (1.2-3.4) K/uL Reactive Lymphs # K/uL Total Abs Lymphocytes (1.2-3.4) K/uL Monocytes # (Manual) (0.11-0.59) K/uL Blood Smear Review PT (9.0-12.0) Seconds INR (0.9-1.1) APTT (21.0-31.0) Seconds PTT Ratio Sodium 141 (136-145) mmol/L Potassium 3.7 (3.5-5.1) mmol/L Chloride 110 H (98-107) mmol/L Carbon Dioxide 22 (21-32) mmol/L Anion Gap 9.0 (3-11) BUN 26 H (7-18) mg/dl Creatinine 1.25 (0.6-1.4) mg/dl Est Cr Clr Drug Dosing 69.1 ml/min Est GFR ( Amer) 71.1 Est GFR (Non-Af Amer) 61.3 BUN/Creatinine Ratio 21.1 H (10-20) Glucose 154 H (70-99) mg/dl POC Glucose (70-99) Estimat Average Glucose 229 mg/dl Hemoglobin A1c 9.6 H (4.5-5.6) % Calcium 9.0 (8.5-10.1) mg/dl Magnesium 2.0 (1.8-2.4) mg/dl Total Bilirubin 0.4 (0.2-1) mg/dl AST 13 L (15-37) U/L ALT 29 (12-78) U/L Alkaline Phosphatase 65 (45-117) U/L Total Protein 7.3 (6.4-8.2) gm/dl Albumin 4.1 (3.4-5.0) gm/dl Globulin 3.2 (2.5-4.0) gm/dl Albumin/Globulin Ratio 1.3 (0.9-2) Stl C. diff Tox B Gene (Neg) Flow Cytometry Comment Blood Type O Positive Antibody Screen NEGATIVE 04/12/19 04/12/19 Range/Units 00:10 00:10 WBC 14.81 H (4.8-10.8) K/uL RBC 4.82 (4.7-6.1) M/uL Hgb 14.8 (14.0-18.0) g/dL Hct 44.1 (42-52) % MCV 91.5 (80-100) fL MCH 30.7 (25-34) pg MCHC 33.6 (32-36) g/dL RDW Std Deviation 44.8 (36.4-46.3) fL RDW Coeff of Alejandrina 13.5 (11.5-14.5) % Plt Count 253 (130-400) K/uL MPV 9.9 (7.4-10.4) fL Neutrophils % (Manual) 32.5 % Lymphocytes % (Manual) 18.8 % Reactive Lymphs % (Man) 46.1 % Monocytes % (Manual) 2.6 % Neutrophils # (Manual) 4.81 (1.4-6.5) K/uL Total Absolute Neuts 4.81 (1.4-6.5) K/uL Lymphocytes # (Manual) 2.78 (1.2-3.4) K/uL Reactive Lymphs # 6.83 K/uL Total Abs Lymphocytes 9.61 H (1.2-3.4) K/uL Monocytes # (Manual) 0.39 (0.11-0.59) K/uL Blood Smear Review Pending PT 10.0 (9.0-12.0) Seconds INR 1.0 (0.9-1.1) APTT 26.6 (21.0-31.0) Seconds PTT Ratio 1.0 Sodium (136-145) mmol/L Potassium (3.5-5.1) mmol/L Chloride (98-107) mmol/L Carbon Dioxide (21-32) mmol/L Anion Gap (3-11) BUN (7-18) mg/dl Creatinine (0.6-1.4) mg/dl Est Cr Clr Drug Dosing ml/min Est GFR ( Amer) Est GFR (Non-Af Amer) BUN/Creatinine Ratio (10-20) Glucose (70-99) mg/dl POC Glucose (70-99) Estimat Average Glucose mg/dl Hemoglobin A1c (4.5-5.6) % Calcium (8.5-10.1) mg/dl Magnesium (1.8-2.4) mg/dl Total Bilirubin (0.2-1) mg/dl AST (15-37) U/L ALT (12-78) U/L Alkaline Phosphatase (45-117) U/L Total Protein (6.4-8.2) gm/dl Albumin (3.4-5.0) gm/dl Globulin (2.5-4.0) gm/dl Albumin/Globulin Ratio (0.9-2) Stl C. diff Tox B Gene (Neg) Flow Cytometry Comment Blood Type Antibody Screen
[2019-04-12 20:37] LABS: Hematocrit (blood only) 40.3 % (42-52); Hemoglobin 13.7 g/dL (14.0-18.0)
[2019-04-12] MEDS ORDERED: CITALOPRAM 40 MG TAB PO SCH (21:00)
[2019-04-12] MEDS ORDERED: MIRTAZAPINE TAB 15 MG TAB PO SCH (21:00)
[2019-04-12] MEDS ORDERED: ATORVASTATIN 40 MG TAB PO SCH (21:00)
[2019-04-12 23:15] VITALS: TEMP 97.5
[2019-04-13 05:55] LABS: Hematocrit (blood only) 42.4 % (42-52); Hemoglobin 14.3 g/dL (14.0-18.0)
[2019-04-13 06:31] LABS: BUN Creatinine Ratio 13.8 (10-20); Calcium 8.8 mg/dl (8.5-10.1); Creatinine Clr Calc Pharmacy 85.5 ml/min; Est GFR (African American) 93.1; Est GFR (Non-African American) 80.3; Magnesium 2.1 mg/dl (1.8-2.4); Potassium 3.5 mmol/L (3.5-5.1)
[2019-04-13 07:41] VITALS: O2SAT 94
[2019-04-13 08:42] VITALS: BP 122/80
[2019-04-13] MEDS: INSULIN ASPART 100 UNITS/ML 3 ML PEN SC SCH (08:52)
[2019-04-13] MEDS: CARVEDILOL 12.5 MG TAB PO SCH (08:53)
[2019-04-13] MEDS: LISINOPRIL 5 MG TAB PO SCH (08:54)
[2019-04-13] MEDS: FENOFIBRATE NANOCRYSTALLIZED 145 MG TABLET PO SCH (08:54)
[2019-04-13] MEDS ORDERED: DOCUSATE SODIUM 100 MG CAP PO ONE (09:20)
--- NOTE | 2019-04-13 09:29 | Discharge Summary ---
Date of Service April 13, 2019 Admission HPI Per Admitting Provider History obtained from patient and records. Medical history significant for hypertension, hyperlipidemia, anxiety/mood disorder, DM 2 on oral meds, ongoing tobacco abuse. 3 days history of rectal bleeding associated with achy lower abdominal cramping, initially with constipation followed by diarrhea. Some nausea, no emesis. No recent antibiotic Rx except for postop cataract eyedrops, no known sick contacts, no recent travel. No unusual weight loss the last few weeks months. No chest pain, no S OB, no dizziness. At the ER, patient received IV Zosyn for diverticular bleed. Medical History as above No prior endoscopies. Discharge Data Allergies Allergy/AdvReac Type Severity Reaction Status Date / Time No Known Allergies Allergy Unverified 04/12/19 01:50 Consultations 04/12/19 02:23 ED Decision to Admit Stat Ordered Studies 04/12/19 00:02 CT abd pelvis IV con only Urgent Hospital Course (1) LGI bleed: Diverticular bleed on CT C. difficile negative Patient currently hemodynamically stable Hemoglobin stable as well Bowel movements decreased in amount, however still has had multiple today We will hold aspirin, or any NSAIDs given LGIB and lack of indication for home use Antibiotics stopped, received Zosyn in the ED Patient did not have colonoscopy yet, discussed in detail that this is something to be done in the future, patient agreed Clear liquids for now, then low fiber diet Trend H&H, transfuse PRBC if hemoglobin less than 7 and/or for symptomatic anemia May need GI consult if with persistent L GIB if stool C. difficile negative hypertension, slightly elevated hyperlipidemia, on statin Rx anxiety/mood disorder, at baseline DM 2 on oral meds, reasonable control as of recent outpatient hemoglobin A1c of 7.06 Oct 2018 ISS BG goal 140-180, update hemoglobin A1c ongoing tobacco abuse Nicotine patch PRN DVT prophylaxis. SCDs RE L GIB Full code Discharge Plan Discharge Items Patient Disposition: Home - Self-Care Reason For Visit: 1gib Discharge Diagnosis: Diverticular bleed Activity: Resume your previous activity Activity Comment: as tolerated Non-emergency contact: Primary Care Provider Call non-emergency contact if: you have any medication questions and your symptoms worsen Follow-up/Referrals: Jerry Rushing MD [Primary Care Provider] - Diet: Low Fiber Diet Comment: low fiber now and for next 1 month, then high fiber diet Addtl Attending Provider Instructions: Avoid aspirin, aleve, ibuprofen, aleve, motrin and other NSAIDs drug. You CAN use Tylenol for pain (up to 3000 mg a day). Low fiber diet for now (then high fiber diet about month later). Avoid constipation and straining. Use stool softener daily as needed. Make sure to follow up with your primary care provider within 1 week and (make sure to have a screening colonoscopy scheduled). Pending Studies at Discharge: No Stand-Alone Forms: My [facility], Smoking Cessation Medications and DC Order Prescriptions: New acetaminophen [Mapap (acetaminophen)] 325 mg Tablet 650 mg PO Q4H PRN (Reason: pain) 30 Days Qty: 30 RF: 0 docusate sodium [Colace] 100 mg capsule 100 mg PO DAILY 30 Days Qty: 30 RF: 0 Continued atorvastatin 40 mg tablet 40 mg PO HS RF: 0 carvedilol 12.5 mg tablet 12.5 mg PO BIDM RF: 0 citalopram 40 mg tablet 40 mg PO HS RF: 0 fenofibrate micronized 200 mg capsule 200 mg PO DAILY RF: 0 mirtazapine 30 mg tablet 30 mg PO QPM RF: 0 metformin 1,000 mg tablet 1,000 mg PO BIDM RF: 0 glimepiride 4 mg tablet 4 mg PO QAM RF: 0 ranitidine HCl 150 mg tablet 150 mg PO BID RF: 0 lorazepam 0.5 mg tablet 0.5 mg PO BID PRN (Reason: Anxiety) RF: 0 lisinopril 5 mg tablet 5 mg PO DAILY RF: 0 Invokana 300 mg tablet 300 mg PO DAILY RF: 0 ascorbic acid (vitamin C) 500 mg Tablet 500 mg PO DAILY RF: 0 cholecalciferol (vitamin D3) [Vitamin D3] 1,000 unit Tablet,Chewable 1,000 unit PO DAILY RF: 0 omega [id number] [Fish Oil] 1,000 mg (120 mg-180 mg) Capsule 1 cap PO DAILY RF: 0 Discontinued aspirin 81 mg Tablet,Delayed Release (Dr/Ec) 81 mg PO DAILY RF: 0 Probiotic 1 dose PO DAILY RF: 0 Discharge Orders: Discharge Order (Routine); Ordered 04/13/19 Ordered By: Tin Bell/Other Patient Handouts: A1C, Diabetes [facility] Complications, Diabetes Resources, Diabetes Type 2 Coping, Diabetes Healthy Meals, Diabetes Carbs, Diabetes Exercise Benefits, Diabetes Exercise Get Started, Diabetes Activity Tips, Diabetes Living Life Admission Data Admit Date/Time: 04/12/19 03:07 Attending Provider: Tin Rizvi Admit Provider: Braulio Ferreira Primary Care Provider: Jerry Rushing Other Providers: Braulio Ferreira
[2019-04-13 10:18] VITALS: PULSE 71
== END 2019-04-13 11:17 | disposition home or self-care (01) ==
LOC: ED 23:50 → 3W 23:50